=== PATIENT | female | born 1985 | race Hispanic/Latino ===

== ENCOUNTER 2023-11-22 15:18 | Emergency (ER) | payer SELFPAY ==
[2023-11-22] MEDS ORDERED: Acetaminophen 500 MG TAB ONE (15:40)
[2023-11-22 16:15] LABS: ALT (SGPT) 30 U/L (8-55); AST (SGOT) 23 U/L (5-34); Albumin 3.4 g/dL (3.5-5.0); Alkaline Phosphatase 72 U/L (40-110); Anion Gap 14 mmol/L (10-20); BUN (Urea Nitrogen) 9 mg/dL (7.0-18.7); Bilirubin, Total 0.2 mg/dL (0.2-1.2); Calc. Creatinine Clearance 0 mL/min (70-130); Calcium 9.4 mg/dL (7.8-10.44); Carbon Dioxide 21 mmol/L (22-29); Chloride 105 mmol/L (98-107); Estimated GFR 120; Globulin 3.7 g/dL (2.4-3.5); Glucose 86 mg/dL (70-105); Lipase 53 U/L (8-78); Potassium 3.9 mmol/L (3.5-5.1); Protein, Total 7.1 g/dL (6.0-8.3); Sodium 136 mmol/L (136-145)
[2023-11-22 16:27] LABS: #Basophils 0.08 10x3/uL (0.0-0.2); #Eosinphils 0.04 10x3/uL (0.0-0.5); #Monocytes 0.61 10x3/uL (0.0-1.1); #Neutrophils 6.64 10x3/uL (1.5-8.4); %Basophils 0.9 % (0.0-2.0); %Eosinophils 0.5 % (0.0-6.0); %Lymphocytes 16.6 % (18.0-47.0); %Monocytes 6.9 % (0.0-10.0); Hematocrit 34.3 % (34.9-44.5); Hemoglobin 10.9 g/dL (12.0-15.5); Mean Corpuscular HGB CONC 31.8 g/dL (32.0-36.0); Mean Corpuscular Hemoglobin 25.2 pg (27.0-33.0); Mean Corpuscular Volume 79.2 fl (81.6-98.3); Mean Platelet Volume 9.6 fl (7.4-10.4); Platelet Count 327 10x3/uL (150-450); Red Blood Cell (RBC) Count 4.33 10x6/uL (3.90-5.03); White Blood Cell (WBC) Count 8.9 10x3/uL (3.5-10.5)
[2023-11-22 17:07] LABS: Bilirubin Neg (Negative); Blood, Urine 50 (Negative); Glucose, Urine (Dipstick) Normal (Negative); Ketone, Urine 150 mg/dL (Negative); Leukocyte 100 (Negative); Nitrite Negative (Negative); Protein, Urine (Dipstick) 15 mg/dl (Neg-Trace); Specific Gravity, Urine 1.025 (1.005-1.030); Urobilinogen Normal mg/dL (Less than 2)
[2023-11-22 17:18] LABS: Clarity Slightly Cloudy (Clear)
[2023-11-22 17:33] LABS: Anisocytosis MODERATE=16-30 cells (100X) (0-5/hpf); Microcytosis MODERATE=15-30 cells (100X) (0-5/hpf)
[2023-11-22 17:34] LABS: CAUTI Indications for Culture Pelvic or flank pain; RBC/HPF 0-3 HPF (0-3); Transitional Epithelial 0-3 HPF (None Seen)
[2023-11-22 17:35] LABS: Bacteria/HPF 3+ HPF (None Seen)
[2023-11-22 17:37] LABS: Hypochromia SLIGHT = 6-15 cells (100X) (0-5/hpf)
[2023-11-22 17:37] LABS: Urine Culture Reflex No No
[2023-11-22 17:38] LABS: Elliptocytes SLIGHT = 2-5 cells (100X) (0-1/hpf); Ovalocytes SLIGHT = 2-5 cells (100X) (0-1/hpf); Spherocytes SLIGHT = 1-5 cells (100X) (None Seen)
[2023-11-22 17:39] LABS: Platelet Adequacy Comment Appears Adequate
[2023-11-23 20:15] LABS: Chlamydia by PCR, Vaginal Swab Not Detected (NotDetected); GC by PCR, Vaginal Swab Not Detected (NotDetected)
== END 2023-11-22 17:52 | disposition home or self-care (01) ==
LOC: CSHERS 15:18
DX: O23.41 Unspecified infection of urinary tract in pregnancy, first trimester (principal); N39.0 Urinary tract infection, site not specified; O23.591 Infection of other part of genital tract in pregnancy, first trimester; Z3A.12 12 weeks gestation of pregnancy
CPT/HCPCS: 36415; 76856; 80053; 81001; 83690; 84702; 85025; 86900; 86901; 87480; 87491; 87510; 87591; 87660; 99283

== ENCOUNTER 2024-04-26 16:08 | Inpatient (IN) | payer MEDICAID, OTHER ==
[2024-04-26] MEDS ORDERED: hydrALAZINE 20 MG/ML VIAL SLOW IVP PRN ×2 (16:43→19:32)
[2024-04-26] MEDS ORDERED: Lactated Ringer's 1,000 ML IV SCH (19:00)
[2024-04-26] MEDS ORDERED: Ibuprofen 800 MG TAB PO PRN (19:29)
[2024-04-26] MEDS ORDERED: Lidocaine 1% (PF) 30 ML VIAL SC PRN (19:29)
[2024-04-26] MEDS ORDERED: Oxytocin 30 units/NS 500 ML 500 ML IV SCH ×2 (19:30→19:45)
[2024-04-26] MEDS ORDERED: Tranexamic Acid 1,000 MG/10 ML VIAL IVP PRN (19:32)
[2024-04-26] MEDS ORDERED: Promethazine HCl 25 MG/ML VIAL IM PRN (19:32)
[2024-04-26] MEDS ORDERED: Misoprostol 200 MCG TAB PR PRN (19:32)
[2024-04-26] MEDS ORDERED: Ondansetron PF 4 MG/2 ML Vial IVP PRN (19:32)
[2024-04-26] MEDS ORDERED: Carboprost 250 MCG/ML AMP IM PRN (19:32)
[2024-04-26] MEDS ORDERED: fentaNYL 50 mcg/mL 1 mL Vial SLOW IVP PRN (19:32)
[2024-04-26] MEDS ORDERED: Acetaminophen 500 MG TAB PO PRN (19:32)
[2024-04-26] MEDS ORDERED: Diphenoxylate HCl/Atropine Tablet PO PRN ×2 (19:32)
[2024-04-26] MEDS ORDERED: Glucagon 1 MG/ML KIT IM PRN (19:37)
[2024-04-26] MEDS ORDERED: Dextrose 5% in Water 1,000 ML IV PRN (19:37)
[2024-04-26] MEDS ORDERED: Dextrose 50% Abboject 50 ML SYRINGE SLOW IVP PRN (19:37)
[2024-04-26] MEDS ORDERED: Insulin Lispro 100 UNIT/ML 10 ML VIAL SC PRN (19:37)
[2024-04-26 19:57] VITALS: BMI 35.2
[2024-04-26] MEDS: Misoprostol 100 MCG TAB VAG SCH (20:54)
[2024-04-26 21:05] LABS: ALT (SGPT) 14 U/L (8-55); AST (SGOT) 16 U/L (5-34); Albumin 3.1 g/dL (3.5-5.0); Alkaline Phosphatase 126 U/L (40-110); Anion Gap 14 mmol/L (10-20); BUN (Urea Nitrogen) 7 mg/dL (7.0-18.7); Bilirubin, Total 0.4 mg/dL (0.2-1.2); Calc. Creatinine Clearance 209 mL/min (70-130); Calcium 9.2 mg/dL (7.8-10.44); Carbon Dioxide 19 mmol/L (22-29); Chloride 105 mmol/L (98-107); Estimated GFR 120; Glucose 69 mg/dL (70-105); Potassium 3.4 mmol/L (3.5-5.1); Protein, Total 7.1 g/dL (6.0-8.3); Sodium 135 mmol/L (136-145)
[2024-04-26 21:07] LABS: #Basophils 0.03 10x3/uL (0.0-0.2); #Eosinophils 0.07 10x3/uL (0.0-0.5); #Monocytes 0.47 10x3/uL (0.0-1.1); #Neutrophils 6.22 10x3/uL (1.5-8.4); %Basophils 0.4 % (0.0-2.0); %Eosinophils 0.8 % (0.0-6.0); %Lymphocytes 19.9 % (18.0-47.0); %Monocytes 5.5 % (0.0-10.0); %Neutrophils 73.3 % (40.0-75.0); Hematocrit 37.2 % (34.9-44.5); Hemoglobin 12.7 g/dL (12.0-15.5); Mean Corpuscular HGB CONC 34.1 g/dL (32.0-36.0); Mean Corpuscular Volume 84.9 fL (81.6-98.3); Mean Platelet Volume 10.4 fL (7.4-10.4); Platelet Count 318 10x3/uL (150-450); RBC Distribution Width 13.3 % (11.5-14.5); Red Blood Cell (RBC) Count 4.38 10x6/uL (3.90-5.03); White Blood Cell (WBC) Count 8.5 10x3/uL (3.5-10.5)
[2024-04-26 21:36] LABS: Platelet Clumps SLIGHT
[2024-04-26 21:37] LABS: RBC Morph Comment Within Normal Limits
[2024-04-26 21:38] LABS: Platelet Adequacy Comment Appears Adequate
[2024-04-26 21:47] LABS: Syphilis Antibody Nonreactive (Nonreactive); Syphilis Antibody Index 0.06 S/CO (<1.00 Non-Reactive)
[2024-04-26 21:49] LABS: HBsAg Index 0.27 S/CO (0-0.99); Hep B Surf Ag - L&D Non-Reactive S/CO (NonReactive)
[2024-04-27] MEDS: Lactated Ringer's 1,000 ML IV SCH (02:07)
[2024-04-27] MEDS: Oxytocin 30 units/NS 500 ML 500 ML IV SCH (02:09)
[2024-04-27] MEDS ORDERED: Lorazepam 2 MG/ML VIAL SLOW IVP PRN (10:23)
[2024-04-27] MEDS ORDERED: Calcium Gluc 4.6 MEQ/10 ML (100 MG/ML) SLOW IVP PRN (10:23)
[2024-04-27] MEDS ORDERED: hydrALAZINE 20 MG/ML VIAL SLOW IVP PRN ×2 (10:23→17:55)
[2024-04-27] MEDS ORDERED: Labetalol HCl 100 MG/20 ML VIAL SLOW IVP PRN ×2 (10:23)
[2024-04-27] MEDS: Magnesium Sulfate 20 gm/500 ml 20 GM/500 ML BAG IVPB SCH (10:49)
[2024-04-27] MEDS: hydrALAZINE 20 MG/ML VIAL SLOW IVP PRN (15:56)
[2024-04-27 16:46] LABS: Analyzer IN Cardio CS NICU; RapidComm Collect By CBN
[2024-04-27 16:47] LABS: Analyzer IN Cardio CS NICU; RapidComm Collect By CBN; pH (Cord, venous) 7.341 (7.250-7.350)
[2024-04-27] MEDS ORDERED: Milk Of Magnesia 30 ML UDCUP PO PRN (17:55)
[2024-04-27] MEDS ORDERED: Varicella virus, LIVE 0.5 ML VIAL SC ONE (17:55)
[2024-04-27] MEDS ORDERED: diphenhydrAMINE 25 MG CAP PO PRN (17:55)
[2024-04-27] MEDS ORDERED: Misoprostol 200 MCG TAB VAG PRN (17:55)
[2024-04-27] MEDS ORDERED: Zolpidem Tartrate 5 MG TAB PO PRN (17:55)
[2024-04-27] MEDS ORDERED: Benzocaine-Menthol 82.5 ML CAN TOP PRN (17:55)
[2024-04-27] MEDS ORDERED: Bisacodyl 10 MG SUPP PR PRN (17:55)
[2024-04-27] MEDS ORDERED: Preparation H Ointment 28 GM TUBE PR PRN (17:55)
[2024-04-27] MEDS ORDERED: Boostrix 0.5 ML (Tdap) VIAL (>/=7 yrs of age) IM ONE (17:55)
[2024-04-27] MEDS ORDERED: Lanolin Ointment 7 GM TUBE TOP PRN (17:55)
[2024-04-27] MEDS ORDERED: Promethazine HCl 25 MG/ML VIAL IM PRN (17:55)
[2024-04-27] MEDS ORDERED: Ondansetron PF 4 MG/2 ML Vial IVP PRN (17:55)
[2024-04-27] MEDS ORDERED: Oxytocin 30 units/NS 500 ML 500 ML IV SCH (18:00)
[2024-04-27] MEDS: HYDROcodone/Acetaminophen 5/325 mg Tablet PO PRN (18:31)
[2024-04-27] MEDS: Ibuprofen 800 MG TAB PO SCH (19:53)
[2024-04-28 04:36] LABS: ALT (SGPT) 12 U/L (8-55); AST (SGOT) 14 U/L (5-34); Albumin 2.4 g/dL (3.5-5.0); Alkaline Phosphatase 97 U/L (40-110); Anion Gap 11 mmol/L (10-20); BUN (Urea Nitrogen) 4 mg/dL (7.0-18.7); Bilirubin, Total 0.3 mg/dL (0.2-1.2); Calc. Creatinine Clearance 244 mL/min (70-130); Calcium 7.3 mg/dL (7.8-10.44); Carbon Dioxide 18 mmol/L (22-29); Chloride 109 mmol/L (98-107); Estimated GFR 125; Globulin 3.2 g/dL (2.4-3.5); Glucose 103 mg/dL (70-105); Potassium 3.4 mmol/L (3.5-5.1); Protein, Total 5.6 g/dL (6.0-8.3); Sodium 135 mmol/L (136-145)
[2024-04-28] MEDS: Docusate 100 MG CAP PO SCH (09:00)
[2024-04-28] MEDS: Prenatal Vitamin 1 TAB PO SCH (09:00)
[2024-04-28] MEDS: metFORMIN 500 MG TAB PO SCH (09:00)
[2024-04-28] MEDS: NIFEdipine XL 30 MG ER.TAB PO SCH (17:07)
[2024-04-28] MEDS: Oxytocin 30 units/NS 500 ML 500 ML ONE (19:50)
[2024-04-28] MEDS: Oxytocin 30 units/NS 500 ML 0 ML ONE (19:50)
[2024-04-28] MEDS: Erythromycin Base 0.5% Oint 1 GM TUBE ONE (19:50)
[2024-04-28] MEDS: Phytonadione Neonatal 1 MG/0.5 ML AMP ONE (19:50)
[2024-04-28] MEDS: Ferrous Sulfate 325 MG TAB PO SCH (19:51)
[2024-04-29] MEDS: metFORMIN 500 MG TAB PO SCH (00:08)
[2024-04-29] MEDS: Acetaminophen 325 MG TAB PO PRN (00:10)
[2024-04-29] MEDS: NIFEdipine XL 30 MG ER.TAB PO SCH ×2 (08:49→17:05)
[2024-04-29] MEDS ORDERED: NIFEdipine XL 30 MG ER.TAB PO SCH (16:30)
[2024-04-30] MEDS: NIFEdipine XL 60 MG ER.TAB PO SCH (09:03)
[2024-04-30] MEDS: Labetalol HCl 100 MG TAB PO SCH ×2 (11:21→15:57)
[2024-04-30] MEDS: NIFEdipine XL 30 MG ER.TAB PO SCH (11:21)
[2024-05-01 07:30] VITALS: TEMP 98.4
[2024-05-01] MEDS: NIFEdipine XL 90 MG ER.TAB PO SCH (09:04)
[2024-05-01 14:01] VITALS: BP 138/74
[2024-05-01] MEDS: Measles/Mumps/Rubella 10 MCG/0.5 ML VIAL SC ONE (15:43)
== END 2024-05-01 16:05 | disposition home or self-care (01) | DRG 806 ==
LOC: CSHLD/OP 16:08 → CSHLD 20:00 → CSHPP 04-28 17:40
PROVIDERS: ADMIT Family Medicine; ATTEND Family Medicine
PROC: 10E0XZZ Delivery of Products of Conception, External Approach (ICD-10-PCS; principal; 2024-04-27)
DX: O24.425 Gestational diabetes mellitus in childbirth, controlled by oral hypoglycemic drugs (principal); O41.03X0 Oligohydramnios, third trimester, not applicable or unspecified; Z37.0 Single live birth; Z3A.34 34 weeks gestation of pregnancy; O36.63X0 Maternal care for excessive fetal growth, third trimester, not applicable or unspecified; O09.523 Supervision of elderly multigravida, third trimester; O14.14 Severe pre-eclampsia complicating childbirth; O99.345 Other mental disorders complicating the puerperium; F53.0 Postpartum depression
CPT/HCPCS: 36415; 36416; 59025; 76815; 76819; 80053; 82805; 85025; 86780; 86850; 86900; 86901; 87340; 90707; 99285; J0360; J2590; J3475; J7120